=== PATIENT | female | born 1995 | race Caucasian/White ===

== ENCOUNTER 2018-04-30 04:22 | Emergency (ER) | payer OTHER ==
[~2018-04-30] VITALS: Ht 162.6 cm; Wt 103.3 kg
[2018-04-30 05:00] LABS: HEMATOCRIT 28.2 % (36.0-46.0); HEMOGLOBIN 8.4 G/DL (11.9-15.5); MCH 20.6 PG (29.0-34.0); MCHC 29.8 G/DL (30.0-36.0); MCV 69.1 FL (83-99); PLATELET COUNT 317 K/uL (156-360); RBC DIS.WIDTH-CV 16.4 % (11.8-14.6); RBC DIS.WIDTH-SD 40.3 % (39-53); RED BLOOD COUNT 4.08 M/uL (3.80-5.20); WHITE BLOOD COUNT 6.8 K/uL (4.1-10.2)
[2018-04-30 05:11] LABS: CHLORIDE 104 mEq/L (99-109); POTASSIUM 4.5 mEq/L (3.7-5.4); SODIUM 137 mEq/L (136-147)
[2018-04-30 05:14] LABS: GLUCOSE 107 mg/dL (70-99); TOTAL PROTEIN 6.7 g/dL (6.4-8.3)
[2018-04-30 05:16] LABS: TOTAL BILIRUBIN 0.2 mg/dL (0.0-1.0)
[2018-04-30 05:17] LABS: ALKALINE PHOSPHATASE 73 IU/L (3-129); CREATININE 0.7 mg/dL (0.6-1.3); GFR ESTIMATE (CALCULATED) > 59 mL/min/
[2018-04-30 05:18] LABS: UREA NITROGEN (BUN) 10 mg/dL (9-23)
[2018-04-30 05:19] LABS: AST (GOT) 20 IU/L (2-34); DIRECT BILIRUBIN 0.1 mg/dL (0.0-0.3)
[2018-04-30 05:20] LABS: ALT (GPT) 9 IU/L (3-49)
[2018-04-30 05:21] LABS: LIPASE 25 U/L (1.0-51.0)
[2018-04-30 05:22] LABS: TROP-I INTERPRETATION NEGATIVE; TROPONIN-I < 0.01 ng/mL (0.0-0.30)
[2018-04-30 05:27] LABS: QUANTITATIVE HCG < 4.0 MIU/ML
[2018-04-30 07:35] LABS: TROP-I INTERPRETATION NEGATIVE; TROPONIN-I < 0.01 ng/mL (0.0-0.30)
[2018-04-30 08:00] VITALS: BP 126/87
== END 2018-04-30 08:00 | disposition home or self-care (01) ==
LOC: EME 04:22
PROVIDERS: Emergency Medicine
DX: R07.9 Chest pain, unspecified (principal); D64.9 Anemia, unspecified; K80.70 Calculus of gallbladder and bile duct without cholecystitis without obstruction; I10 Essential (primary) hypertension; Z88.0 Allergy status to penicillin
CPT/HCPCS: 71046; 76705; 80048; 80076; 83690; 84484; 84702; 85027; 93005; C9113; J2405; J3010; J7030